=== PATIENT | male | born 1995 | race Caucasian/White ===

== ENCOUNTER 2024-12-07 16:08 | Emergency (ER) | payer MEDICAID ==
[~2024-12-07] VITALS: Ht 177.8 cm; Wt 67.4 kg
[2024-12-07 16:15] VITALS: BP 116/83; PULSE 130; TEMP 97; O2SAT 96
[2024-12-07] MEDS ORDERED: ALPR1TAB7 PO (16:26)
--- NOTE | 2024-12-07 16:27 | Physician Documentation ---
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 Has been increasingly anxious needing medications Medication Reconciliation Allergies: Coded Allergies: No Known Allergies (Unverified , 12/07/24) Past Medical History Past Medical History: Anxiety Review of Systems All Other Systems at this time: Reviewed and Negative Psychiatric: Reports: see HPI Physical Exam Physical Exam Vital Signs: RN Vital Signs have been reviewed: Yes, Temperature: 97.0, Source: Temporal, Heart Rate: 130, Respiratory Rate: 18, BP: 116/83, Pulse Oximetry: 96, Weight: 67.400 Oxygen Flow Rate: 0 Physical Exam General: Alert, no apparent distress. HEENT: moist mucous membranes. Neck: Full range of motion. Respiratory: No respiratory distress speaking in full sentences Chest: No accessory muscle use. Cardiovascular: Appears well perfused Neurologic: Oriented x4. Psychiatric: Normal mood and affect. Skin: Normal color, warm and dry. No edema, no ecchymosis. Progress Results/Orders Results/Orders Vital Signs 12/07/24 16:15 Temp 97.0 Pulse 130 Resp 18 B/P (MAP) 116/83 Pulse Ox 96 O2 Flow Rate 0 Medical Decision Making Findings Medication refilled for 7 days patient will see provider on the 17. Departure Time of Disposition: 16:25 Disposition: 01 HOME / SELF CARE / HOMELESS Impression: Primary Impression: General medical exam Condition: Stable Discharge Instructions: Medicine Refill at the Emergency Department Additional Instructions: Maintain appointment with provider to get refill of medication take medications as prescribed Referrals: NO PRIMARY CARE PROVIDER (PCP) Prescriptions Alprazolam (Alprazolam) 1 Mg Tablet 1 TAB PO TID PRN PRN for anxiety for 7 Days, #21 TAB 0 Refills Prov: JENIFER WEBB NP 12/07/24 Education Educated: Patient Educated regarding: diagnosis, treatment, need for follow up Signature Scribe Signature: No scribe Attestation: The note accurately reflects work and decisions made by me.Jenifer RENEE 12/07/24 16:27 JENIFER WEBB NP Dec 07, 2024 16:27
[2024-12-07 16:38] VITALS: RESP 16
== END 2024-12-07 16:42 | disposition home or self-care (01) ==
LOC: ER 16:09
DX: Z00.00 Encounter for general adult medical examination without abnormal findings (principal); Z76.0 Encounter for issue of repeat prescription; F41.9 Anxiety disorder, unspecified
CPT/HCPCS: 99282